=== PATIENT | female | born 1980 | race Two or more races ===

== ENCOUNTER 2022-06-12 08:12 | Outpatient (CLI) | payer OTHER | END 2022-06-12 23:59 | disposition home or self-care (01) | LOC: DS 08:12 → LAB 23:59 | PROVIDERS: ATTEND Specialist | DX: Z01.812 Encounter for preprocedural laboratory examination (principal); Z20.822 Contact with and (suspected) exposure to COVID-19 | CPT/HCPCS: U0003; C9803 ==

== ENCOUNTER 2022-06-18 05:35 | Day surgery (SDC) | payer OTHER ==
[2022-06-18] MEDS ORDERED: ANESTHESIA TRAY IN PYXIS 1 EA TRAY MC ONE (05:43)
[2022-06-18] MEDS ORDERED: FENTANYL PF 100MCG/2ML AMPUL ONE (06:31)
[2022-06-18] MEDS ORDERED: BUPIVACAINE 0.5 % PF 150 MG/30 ML VIAL ONE (07:19)
[2022-06-18] MEDS ORDERED: MEPERIDINE25 MG SYR 25 MG/ML VIAL ONE (07:51)
[2022-06-18] MEDS ORDERED: ACETAMINOPHEN ES 500 MG TABLET ONE (09:00)
== END 2022-06-18 09:30 | disposition home or self-care (01) ==
LOC: DS 05:35
PROVIDERS: ATTEND Specialist
DX: S63.592A Other specified sprain of left wrist, initial encounter (principal); M94.232 Chondromalacia, left wrist
CPT/HCPCS: 29844; 29846; J0690; J3490 ×2; J2704; J3010; J2765; J1885; J2405; J7030; A6253; A4217; A6402; J2175

== ENCOUNTER 2023-02-14 05:30 | Day surgery (SDC) | payer OTHER ==
[2023-02-14] MEDS ORDERED: FENTANYL PF 100MCG/2ML AMPUL ONE (07:23)
[2023-02-14] MEDS ORDERED: FAMOTIDINE/PF INJ 20 MG/2 ML VIAL IV ONE (07:23)
[2023-02-14 07:49] LABS: PREGNANCY TEST URINE QUAL NEGATIVE (NEGATIVE)
[2023-02-14] MEDS ORDERED: BUPIVACAINE 0.25% 75 MG/30 ML VIAL ONE (08:01)
[2023-02-14] MEDS ORDERED: SEVOFLURANE 250 ML BOTTLE IH ONE (08:26)
[2023-02-14] MEDS ORDERED: DESFLURANE 240 ML BOTTLE IH ONE (08:26)
== END 2023-02-14 10:59 | disposition home or self-care (01) ==
LOC: DS 05:30
PROVIDERS: ATTEND Physician Assistant
DX: S63.591A Other specified sprain of right wrist, initial encounter (principal); E78.00 Pure hypercholesterolemia, unspecified; M94.231 Chondromalacia, right wrist; X58.XXXA Exposure to other specified factors, initial encounter; Y93.89 Activity, other specified; Y92.89 Other specified places as the place of occurrence of the external cause; Y99.8 Other external cause status; Z98.890 Other specified postprocedural states; Z79.899 Other long term (current) drug therapy
CPT/HCPCS: 29846; 84703; J0690; J1100; J2704; J3010; J3490 ×4; J2765; J2405; J7030; A6253; A4217; A6402